=== PATIENT | female | born 1955 | race Caucasian/White ===

== ENCOUNTER 2016-12-31 15:37 | Emergency (ER) | payer MEDICARE, MEDICAID ==
[~2016-12-31] VITALS: Ht 154.9 cm; Wt 68.0 kg
[2016-12-31 16:24] VITALS: BP 135/85
--- NOTE | 2016-12-31 17:41 | Emergency Room Report ---
History of Present Illness General Chief Complaint: Multiple Trauma/Fall Source: Patient Present Illness HPI This patient states that about 4 hours ago she was walking in a parking lot. She states that the pain and was and even but she didn't realize it and she tripped and fell and hit her left cheek and left hand. She did get seen at the clinic and underwent an x-ray and was diagnosed with a fracture of the fifth digit. She denies any other injury or pain. She denies headache or blurry vision. She denies neck pain. She denies chest pain or shortness of breath. She denies abdominal pain. She did not have any symptoms prior to event such as lightheadedness, palpitations, chest pain or shortness of breath. She states she was feeling well and tripped walking. She has no other complaints. Allergies: Coded Allergies: No Known Allergies (Unverified , 12/31/16) Patient History Past Medical History: see triage record, HTN, other - LBP, Hypothyroid Social History: Denies: alcohol use, drug use, smoking Last Menstrual Period: N/A Reviewed Nursing Documentation: PMH: Agreed, PSxH: Agreed Review of Systems All Other Systems: negative except mentioned in HPI Physical Exam Vital Signs Date Time Temp Pulse Resp B/P Pulse Ox O2 Delivery O2 Flow Rate FiO2 12/31/16 15:41 98.2 84 18 135/85 96 Room Air Sp02 EP Interpretation: reviewed, normal General Appearance: no apparent distress, alert, GCS 15, non-toxic Head: normocephalic, other - Ecchymosis and swelling over L. cheek. TTP zygoma. Eyes: bilateral eye PERRL, bilateral eye normal inspection ENT: hearing grossly normal, normal pharynx, no angioedema, normal voice Neck: full range of motion, supple/symm/no masses Respiratory: chest non-tender, lungs clear, normal breath sounds, speaking full sentences Cardiovascular #1: regular rate, rhythm, no edema Gastrointestinal: normal bowel sounds, non tender, soft, non-distended, no guarding, no rebound Rectal: deferred Musculoskeletal: back normal, gait/station normal, other - L. fifth digiti w/ ecchymosis and swelling. +TTP Neurologic: alert, oriented x3, responsive, motor strength/tone normal, sensory intact, speech normal Psychiatric: judgement/insight normal, memory normal, mood/affect normal, no suicidal/homicidal ideation Skin: normal color, no rash, warm/dry, well hydrated, other - See MSK Medical Decision Making Diagnostic Impression: Primary Impression: Facial contusion Additional Impression: Finger fracture, left ER Course Patient presents status post fall. She has a facial contusion and a small fracture of her left fifth digit. She is placed in an extension splint. Overall, the patient evaluation was benign. She is instructed to followup closely with orthopedics. No emergency medical condition is identified. The patient's given return precautions and followup instructions. I had planned on ordering basic labs, however, the patient had recent labs with her to include a CBC, CMP all of which were unremarkable. She preferred to declined a lab draw. Given this is a mechanical fall and I reviewed recent normal times I felt that this was appropriate. Therefore, labs were not obtained. EKG Diagnostic Results Rate: normal ST Segments: no acute changes Rhythm Strip Diag. Results EP Interpretation: yes Rate: 70's Rhythm: NSR, no PVC's, no ectopy Other X-Ray Diagnostic Results X-Ray ordered: L. hand # of Views/Limited Vs Complete: 3 View Interpretation: other Indication: Pain Impression: Other - Fx middle phalanx. See official report. Date Electronically Signed: Dec 31, 2016 Time Electronically Signed: 17:40 Interpreting ER Physician: Dhara CT/MRI/US Diagnostic Results CT/MRI/US Diagnostic Results : Imaging Test Ordered: CT head/facial bones Impression No acute intracranial process. No mass effect or edema. No facial bone fx's. See official report. Last Vital Signs Date Time Temp Pulse Resp B/P Pulse Ox O2 Delivery O2 Flow Rate FiO2 12/31/16 16:24 98.2 18 135/85 96 Room Air 12/31/16 15:41 84 Disposition: HOME, SELF-CARE Condition: Improved Referrals: NON PHYSICIAN (PCP) ROBINSON REYES D.O. Dec 31, 2016 17:41
[2016-12-31 18:51] VITALS: BP 134/88
[2016-12-31 20:25] VITALS: BP 130/70
--- NOTE | 2017-01-01 08:36 | Diagnostic Imaging Report ---
Indications: FALL Technique: Spiral images obtained through the facial bones. No IV contrast utilized. Multiplanar reconstructions were generated.Total dose length product 587 mGycm. CTDIvol(s) 28mGy. Dose reduction achieved using automated exposure control Comparison: None Findings: No acute fractures. There is minimal left maxillary sinus mucosal disease, but no worrisome acute sinus opacification. There is mild left malar soft tissue swelling and a very small subcutaneous hematoma. Intact dentition. The retropharyngeal soft tissues are unremarkable. The optic globes are intact. Impression: Minimal left facial soft tissue swelling/contusion with small subcutaneous hematoma No acute bony trauma Minimal left maxillary sinus disease This agrees with the preliminary interpretation provided overnight by [facility]. The CT scanner at [facility] is accredited by the [employer] and the scans are performed using protocols designed to limit radiation exposure to as low as reasonably achievable to attain images of sufficient resolution adequate for diagnostic evaluation.
--- NOTE | 2017-01-01 12:02 | Diagnostic Imaging Report ---
Indication: FALL, head and facial pain/trauma status post fall Technique: Continuous helical CT scanning of the head was performed without intravenous contrast material. Axial and coronal 5 mm sections were generated. Radiation dose was minimized using automated exposure control Dose: Total Dose Length Product - DLP [address] Dose Index - CTDIvol(s) 70.38 mGy. Comparison: None Findings: The ventricular system is normal in size and configuration. There is no shift of midline structures. No abnormal extra-axial fluid collections are noted. There is no evidence of intracerebral bleeding. No other abnormal high or low density areas are noted within the brain. Normal franco-white differentiation. The sinuses and mastoids are clear. Visualized orbits are unremarkable. Intact calvarium. Impression: Normal CT scan of the head without contrast material. This agrees with the preliminary interpretation provided overnight by [facility]. The CT scanner at [facility] is accredited by the [employer] and the scans are performed using protocols designed to limit radiation exposure to as low as reasonably achievable to attain images of sufficient resolution adequate for diagnostic evaluation.
--- NOTE | 2017-01-01 16:37 | Cardiology Report ---
APPROVED REPORT EKG Measurement Heart [id number] Normal sinus rhythm Normal ECG
== END 2016-12-31 20:25 | disposition home or self-care (01) ==
LOC: EMR 17:00
DX: S00.83XA Contusion of other part of head, initial encounter (principal); S62.607A Fracture of unspecified phalanx of left little finger, initial encounter for closed fracture; W01.0XXA Fall on same level from slipping, tripping and stumbling without subsequent striking against object, initial encounter; Y92.481 Parking lot as the place of occurrence of the external cause; R51 Headache; J32.0 Chronic maxillary sinusitis; I10 Essential (primary) hypertension; E03.9 Hypothyroidism, unspecified
CPT/HCPCS: 70450; 70486; 93005; 99284